=== PATIENT | female | born 1950 | race Caucasian/White ===

== ENCOUNTER → 2016-08-09 | Day surgery (SDC) | payer OTHER ==
[~2016-08-09] MED LIST: ALPR.5 PO; AMBI5TAB PO; APIX5 PO; APIX5TAB PO; ASPI81TA82 PO; GLUCOMETER XX; INSU-118 SQ; LACTATED RINGER'S 1000 ML INJ 1,000 ML ONE; METF500 PO; NOVOLOGSS SQ; PANT40IN3 PO; PRED5PAK PO; PROPOFOL 200 MG/20 ML AMP IV ONE
--- NOTE | 2016-08-09 08:48 | GIPROC ---
[facility] [address] [facility], [address] EGD PROCEDURE REPORT EXAM DATE: 08/09/2016 PATIENT NAME: Rik Jimenez MR #: [id number] BIRTHDATE: 1950 ATTENDING: Jreemie Hay MD ORDER #: [id number] CORN DETASSELER MACHINE OPERATOR: none STATUS: outpatient INDICATIONS: The patient is a 65 yr old female here for an EGD due to history of esophageal reflux PROCEDURE PERFORMED: EGD w/ biopsy MEDICATIONS: None and Per Anesthesia. TOPICAL ANESTHETIC: none CONSENT: The patient understands the risks and benefits of the procedure and understands that these risks include, but are not limited to: sedation, allergic reaction, infection, perforation and/or bleeding. Alternative means of evaluation and treatment include, among others: physical exam, x-rays, and/or surgical intervention. The patient elects to proceed with this endoscopic procedure. medical equipment was checked for proper function. Hand hygiene and appropriate measures for infection prevention was taken. After the risks, benefits and alternatives of the procedure were thoroughly explained, Informed consent was verified, confirmed and timeout was successfully executed by the treatment team. The patient was anesthetized with topical anesthesia and the EC-[id number] ([id number]) endoscope was introduced through the mouth and advanced to the second portion of the duodenum. Prominent gastric fold vs mass extended through the pylorus. Significant bile noted in stomach. Retroflexed views revealed no abnormalities The gastroscope was then slowly withdrawn and removed. Prominent gastric fold vs mass at pylorus bile reflux. ADVERSE EVENTS: There were no complications. IMPRESSIONS: 1. Prominent gastric fold vs mass at pylorus bile reflux 2. Retroflexed views revealed no abnormalities RECOMMENDATIONS: 1. Await biopsy results. Biopsy results will not be ready for 7-10 days. If you don't hear from us in two weeks, call our office for biopsy results. 2. Continue PPI PATIENT CONDITION: fair DISPOSITION: Home REPEAT EXAM: NONE Jeremie Hay MD eSigned: Jeremie Hay MD 08/09/2016 8:48 AM cc: Bert Carmen M.D. PATIENT NAME: Rik Jimenez MR#: [id number]
== END | disposition home or self-care (01) ==
LOC: ESDC 07:10
PROVIDERS: ATTEND Surgery
DX: K21.9 Gastro-esophageal reflux disease without esophagitis (principal); K31.89 Other diseases of stomach and duodenum
CPT/HCPCS: 00740; 43239; 88305; 88312; J3010; J7120

== ENCOUNTER 2017-01-28 07:30 | Inpatient (IN) | payer OTHER ==
[~2017-01-28] VITALS: Ht 157.5 cm; Wt 107.3 kg
[2017-01-30] MEDS ORDERED: VENTAER INH (09:35)
[2017-01-31] MEDS ORDERED: metroNIDAZOLE 500 MG INJ 100 ML IV SCH (07:15)
[2017-01-31] MEDS ORDERED: METOPROLOL TARTRATE 25 MG TAB PO PRN (07:15)
[2017-01-31] MEDS ORDERED: LACTATED RINGER'S 1000 ML IV PRN (07:15)
[2017-01-31] MEDS ORDERED: SODIUM CHLORID 0.9% 500 ML IV PRN (07:15)
[2017-01-31] MEDS ORDERED: SCOPOLAMINE 1.5 MG PATCH T-DERMAL SCH (07:15)
[2017-01-31] MEDS ORDERED: INSULIN HUMAN REGULAR 1,000 UNITS/10 ML VIAL SQ PRN (07:15)
[2017-01-31] MEDS ORDERED: APREPITANT 40 MG CAP PO SCH (07:15)
[2017-01-31] MEDS ORDERED: ceFAZolin 2 GM PREMIX 50 ML IV SCH (07:15)
[2017-01-31] MEDS ORDERED: POVIDONE IODINE 5% (ANTISEPSIS KIT) 4 APPLICATIONS EACH NARE PRN (07:15)
[2017-01-31] MEDS ORDERED: ACETAMINOPHEN 1000 MG/100 ML 100 ML IV SCH (07:15)
[2017-01-31] MEDS ORDERED: ONDANSETRON HCL 4 MG/2 ML VIAL IV PUSH SCH (07:15)
[2017-01-31] MEDS ORDERED: CHLORHEXIDINE GLUCONATE 2 % 1 PACK (2 CLOTHS) TOPICAL PRN (07:15)
[2017-01-31] MEDS ORDERED: MIDAZOLAM HCL 2 MG/2 ML VIAL ONE (10:31)
[2017-01-31] MEDS ORDERED: FAMOTIDINE 20 MG/2 ML VIAL ONE (10:31)
[2017-01-31] MEDS ORDERED: BUPIVACAINE/EPINEPHRINE 0.25% PF 10 ML VIAL INFIL ONE (11:10)
[2017-01-31] MEDS ORDERED: METHYLENE BLUE 10 MG/ML VIAL NG ONE (11:33)
[2017-01-31] MEDS ORDERED: NALOXONE HCL 0.4 MG/ML AMP IV PUSH PRN (12:15)
[2017-01-31] MEDS ORDERED: ACETAMINOPHEN 325MG/HYDROcodone 7.5MG/15ML UDC PO PRN ×2 (12:15)
[2017-01-31] MEDS ORDERED: ENALAPRILAT 1.25 MG/ML VIAL IV PUSH PRN (12:15)
[2017-01-31] MEDS ORDERED: MORPHINE SULFATE 30 MG/30 ML PCA IV SCH (12:15)
[2017-01-31] MEDS ORDERED: SODIUM CHLORIDE 0.9% FLUSH 10 ML FLUSH PRN (12:15)
[2017-01-31] MEDS ORDERED: diphenhydrAMINE HCL ELIXIR 12.5 MG/5 ML CUP PO PRN (12:15)
[2017-01-31] MEDS ORDERED: diphenhydrAMINE HCL 50 MG/ML VIAL IV PRN (12:15)
[2017-01-31] MEDS ORDERED: Post-op Orders (for Pharmacy) MISC OTHER ONE (12:15)
[2017-01-31] MEDS: D5-1/2 NS + KCL 20 MEQ INJ 1,000 ML IV SCH ×2 (12:30→20:37)
[2017-01-31] MEDS: METOCLOPRAMIDE HCL 10 MG/2 ML VIAL IV PUSH SCH ×2 (13:01→20:37)
[2017-01-31] MEDS ORDERED: ePHEDrine/NS 25 MG/5 ML SYR IV ONE (13:10)
[2017-01-31] MEDS ORDERED: LACTATED RINGER'S 1000 ML INJ 1,000 ML IV ONE (13:10)
[2017-01-31] MEDS ORDERED: ONDANSETRON HCL 4 MG/2 ML VIAL IV PUSH ONE (13:10)
[2017-01-31] MEDS ORDERED: PROPOFOL 200 MG/20 ML AMP IV ONE (13:10)
[2017-01-31] MEDS ORDERED: NEOSTIGMINE 3 MG/3 ML SYR IV ONE (13:10)
[2017-01-31] MEDS ORDERED: DO NOT ADM ANY ANTICOAGULANT DRUGS PRN (13:15)
[2017-01-31 15:38] VITALS: O2SAT 93
[2017-01-31] MEDS: RESP: ALBUTEROL 2.5 MG/3 ML NEB (SCH) INH ×2 (15:42→20:41)
[2017-01-31 16:00] VITALS: BP 104/61; PULSE 94; RESP 17; TEMP 95.8; O2SAT 91
[2017-01-31] MEDS: metroNIDAZOLE 500 MG INJ 100 ML IV SCH (16:45)
[2017-01-31] MEDS: ENOXAPARIN SODIUM 40 MG/0.4 ML SYRINGE SQ SCH (16:45)
[2017-01-31] MEDS: ONDANSETRON HCL 4 MG/2 ML VIAL IV PRN (17:22)
[2017-01-31 20:00] VITALS: BP 100/59; PULSE 84; RESP 19; TEMP 97.8; O2SAT 98
[2017-01-31] MEDS: PCA - TOTAL MG MORPHINE DELIVERED PER SHIFT SCH (20:36)
[2017-01-31] MEDS: SODIUM CHLORIDE 0.9% FLUSH 10 ML FLUSH IV FLUSH SCH (20:37)
[2017-01-31 20:44] VITALS: O2SAT 94
[2017-02-01] VITALS (8 sets, daily range): BP systolic 98–129; BP diastolic 56–69; PULSE 69–95; RESP 16–19; TEMP 97–99; O2SAT 91–97
[2017-02-01] MEDS: METOCLOPRAMIDE HCL 10 MG/2 ML VIAL IV PUSH SCH ×2 (01:30→08:56)
[2017-02-01] MEDS: metroNIDAZOLE 500 MG INJ 100 ML IV SCH ×2 (01:30→08:57)
[2017-02-01] MEDS: RESP: ALBUTEROL 2.5 MG/3 ML NEB (SCH) INH ×6 (02:06→22:01)
[2017-02-01] MEDS: PCA - TOTAL MG MORPHINE DELIVERED PER SHIFT SCH ×3 (06:00→22:00)
[2017-02-01] MEDS: D5-1/2 NS + KCL 20 MEQ INJ 1,000 ML IV SCH ×3 (06:15→22:21)
[2017-02-01 07:28] LABS: AUTOMATED NEUTROPHIL # 8.4 TH/MM3 (1.8-7.7); BASOPHIL % 0.1 % (0.0-2.0); EOSINOPHIL % 0.2 % (0.0-4.0); HEMATOCRIT 36.1 % (35.0-46.0); HEMO FLAGS DIFF FINAL; LYMPH % 15.5 % (9.0-44.0); LYMPHOCYTE # 1.7 TH/MM3 (1.0-4.8); MEAN CELL VOLUME 91.6 FL (80.0-100.0); MEAN CORPUSCULAR HEMOGLOBIN 31.5 PG (27.0-34.0); MEAN CORPUSCULAR HGB CONC 34.4 % (32.0-36.0); MONO % 6.8 % (0.0-8.0); NEUT % 77.4 % (16.0-70.0); PLATELET COUNT 226 TH/MM3 (150-450); RED BLOOD COUNT 3.94 MIL/MM3 (4.00-5.30); RED CELL DISTRIBUTION WIDTH 13.3 % (11.6-17.2); WHITE BLOOD COUNT 10.9 TH/MM3 (4.0-11.0)
[2017-02-01 07:48] LABS: BICARBONATE 27.2 MEQ/L (21.0-32.0); POTASSIUM 3.7 MEQ/L (3.5-5.1)
[2017-02-01] MEDS: PANTOPRAZOLE SOD 40 MG DELAYED RELEASE TAB PO SCH (08:57)
[2017-02-01] MEDS: SODIUM CHLORIDE 0.9% FLUSH 10 ML FLUSH IV FLUSH SCH ×2 (08:57→21:00)
[2017-02-01] MEDS: ONDANSETRON HCL 4 MG/2 ML VIAL IV PRN ×2 (10:43→17:51)
[2017-02-01] MEDS ORDERED: METOCLOPRAMIDE HCL 10 MG/2 ML VIAL IV PUSH PRN (12:15)
--- NOTE | 2017-02-01 12:16 | HHI.PR ---
Subjective Subjective Notes Laying in bed C/O dizziness and nausea Slow with PO fluids Objective Vitals/I&O Vital Signs Date Time Temp Pulse Resp B/P (MAP) Pulse Ox O2 Delivery O2 Flow Rate FiO2 02/01/17 08:18 97 Nasal Cannula 2.00 02/01/17 08:00 97.5 75 16 98/59 (72) Labs Laboratory Tests Test 02/01/17 07:03 White Blood Count 10.9 Red Blood Count 3.94 Hemoglobin 12.4 Hematocrit 36.1 Mean Corpuscular Volume 91.6 Mean Corpuscular Hemoglobin 31.5 Mean Corpuscular Hemoglobin Concent 34.4 Red Cell Distribution Width 13.3 Platelet Count 226 Mean Platelet Volume 8.5 Neutrophils (%) (Auto) 77.4 Lymphocytes (%) (Auto) 15.5 Monocytes (%) (Auto) 6.8 Eosinophils (%) (Auto) 0.2 Basophils (%) (Auto) 0.1 Neutrophils # (Auto) 8.4 Lymphocytes # (Auto) 1.7 Monocytes # (Auto) 0.7 Eosinophils # (Auto) 0.0 Basophils # (Auto) 0.0 CBC Comment DIFF FINAL Differential Comment Blood Urea Nitrogen 10 Creatinine 0.76 Random Glucose 171 Calcium Level 8.2 Magnesium Level 2.0 Sodium Level 137 Potassium Level 3.7 Chloride Level 105 Carbon Dioxide Level 27.2 Anion Gap 5 Estimat Glomerular Filtration Rate 77 Cardiovascular: Regular Lungs: Clear Abdomen: Post-op tenderness Extremities: Perfused Wound Wound : Wound Location: Abdomen Appearance: Clean & Dry A/P Assessment and Plan 66yo F POD#1 Laparoscopic VSG -250ml NS bolus -Continue with frequent ambulation -Continue to increase fluids as tolerated The exam, history, and the medical decision-making described in the above note were completed with the assistance of the mid-level provider. I reviewed and agree with the findings presented. I attest that I had a [id number] encounter with the patient on the same day, and personally performed and documented my assessment and findings in the medical record. Discharge Planning D/C home probably tomorrow Violet De Jesus Feb 01, 2017 12:16 Bert Carmen MD Feb 03, 2017 16:07
[2017-02-01] MEDS ORDERED: SODIUM CHLOR 0.9% 250 ML INJ 250 ML IV ONE (12:30)
[2017-02-01] MEDS: ENOXAPARIN SODIUM 40 MG/0.4 ML SYRINGE SQ SCH (16:22)
[2017-02-02] VITALS: BP 124/62; PULSE 76; RESP 17; TEMP 98.1; O2SAT 93
[2017-02-02] MEDS: RESP: ALBUTEROL 2.5 MG/3 ML NEB (SCH) INH ×2 (01:46→08:00)
[2017-02-02] MEDS: D5-1/2 NS + KCL 20 MEQ INJ 1,000 ML IV SCH (05:52)
[2017-02-02] MEDS: PCA - TOTAL MG MORPHINE DELIVERED PER SHIFT SCH (05:53)
[2017-02-02] MEDS: ONDANSETRON HCL 4 MG/2 ML VIAL IV PRN (05:58)
[2017-02-02 08:00] VITALS: BP 121/77; PULSE 78; RESP 17; TEMP 98.3; O2SAT 97
--- NOTE | 2017-02-02 08:08 | HHI.PR ---
Subjective Subjective Notes no new complaints, ambulating, tolerating 60cc/ of liquid, minimal nausea Objective Vitals/I&O Vital Signs Date Time Temp Pulse Resp B/P (MAP) Pulse Ox O2 Delivery O2 Flow Rate FiO2 02/02/17 05:53 18 02/02/17 00:00 98.1 76 124/62 (82) 93 02/01/17 22:05 Nasal Cannula 3.00 Abdomen: Other (incisional tenderness) A/P Assessment and Plan POD 2 Lap sleeve, doing well PLAN OOB Campos liquid diet po pain control oob d/c home today Jeremie Hay MD Feb 02, 2017 08:08
[2017-02-02] MEDS: PANTOPRAZOLE SOD 40 MG DELAYED RELEASE TAB PO SCH (08:47)
[2017-02-02] MEDS: SODIUM CHLORIDE 0.9% FLUSH 10 ML FLUSH IV FLUSH SCH (08:48)
--- NOTE | 2017-02-04 10:14 | MP ---
cc: ANGELO CARMEN DATE OF 1950 DATE OF OPERATION 01/31/2007 PREOPERATIVE DIAGNOSIS Morbid obesity with a BMI of 43 complicated by type 2 diabetes. POSTOPERATIVE DIAGNOSES 1. Morbid obesity with a BMI of 43 complicated by type 2 diabetes. 2. Hiatal hernia PROCEDURE Laparoscopic vertical sleeve gastrectomy over a 36-Mal[place] ViSiGi bougie. SURGEON Angelo Carmen MD PROOF TECHNICIAN Jeremie Hay assistant professor of business was necessary for the procedure due to the complexity of the procedure, Dr. Hay was utilized for manipulation and exposure during the procedure Dr. Hay participated for the entire procedure. The assistant professor of business provided by the hospital was utilized for managing the camera ANESTHESIA General endotracheal anesthesia. ESTIMATED BLOOD LOSS Scant. FINDINGS Fatty liver. Moderate-sized hiatal hernia. SPECIMENS None. COMPLICATIONS None. OPERATION The patient was brought to the operating room and placed on the operating table in supine position, bilateral sequential inflation device placed on lower extremities. General anesthesia was instituted. Antibiotics was initiated. The abdomen was prepped and draped sterilely. A point 15 cm distal to the xiphoid in the midline was anesthetized with 0.25% Marcaine with epinephrine. A skin incision was made, 5-mm OptiView port placed under direct vision and pneumoperitoneum created. Under direct vision, three 5-mm left upper quadrant, a 15-mm right upper quadrant, 5-mm right upper quadrant ports placed. Prior to placement of all ports the skin and peritoneum were anesthetized with 0.25% Marcaine with epinephrine. The patient was placed in reverse Trendelenburg position left side up, the Kisha-Flex retractor was placed. The left lobe of the liver was retracted. The left and right crura of the diaphragm was dissected, dissecting the hiatal hernia, mobilizing the GE junction into the abdominal cavity. The hernia sac was excised. The crura of the diaphragm was approximated with 0- silk sutuer. The vasculature along the greater curvature of the stomach was using harmonic scalpel starting a distance 5-cm proximal to the pylorus and carried towards the angle of His. Posterior ligamentous attachments were sharply . A 36-Mal[place]ian ViSiGi bougie was placed at the start of the case, was placed on suction. Division of the stomach started 5 cm proximal to the pylorus and carried towards the angle of His to completely excise approximately 80% of the stomach. This was performed using an [place] Flex stapler at the pylorus. The first firing was with a black load, followed by a green load and four gold loads. All staple loads were reinforced with SeamGuard. A distance of 2 cm was left from the angle incisura and the staple line and a distance of 1 cm left from the GE junction and the staple line. The pylorus was then occluded, methylene blue tinged saline was instilled. There was no evidence of extravasation. The gastrocolic ligament was then sutured to the posterior leaflet of the SeamGuard using a 2-0 Vicryl suture in a running manner. Bleeding points were controlled with Evicel. The excised stomach was removed from the peritoneal cavity through the 15-mm port site. The fascia at the 15-mm port site was approximated with 0 Vicryl suture. The CO2 was then released, all ports were removed, all skin incisions closed with 4-0 Monocryl. The abdominal wall was cleaned. A sterile dressing was placed. The patient was awakened and taken to the recovery room. Angelo Carmen MD JS/SSB /12:19 AM /10:07 AM MTDTal
== END 2017-02-02 10:29 | disposition home or self-care (01) | DRG 621 ==
LOC: HSDI 01-31 06:37 → N07B 01-31 14:16
PROVIDERS: ADMIT Surgery; ATTEND Surgery
PROC: 0BQR0ZZ (ICD-10-PCS; 2017-01-31)
PROC: 0DB64Z3 Excision of Stomach, Percutaneous Endoscopic Approach, Vertical (ICD-10-PCS; principal; 2017-01-31 10:34)
DX: E66.01 Morbid (severe) obesity due to excess calories (principal); K76.0 Fatty (change of) liver, not elsewhere classified; E11.9 Type 2 diabetes mellitus without complications; Z68.41 Body mass index [BMI] 40.0-44.9, adult; K44.9 Diaphragmatic hernia without obstruction or gangrene
CPT/HCPCS: 80048; 82948; 83735; 85025; 94150; 94640; 94664; J0131; J0690; J1650; J2250; J2270; J2405; J2710; J2765; J3010; J3480; J7050; J7120; J7613; J8501